=== PATIENT | male | born 2000 | race Caucasian/White ===

== ENCOUNTER 2021-03-23 16:07 | Emergency (ER) | payer OTHER ==
[~2021-03-23] VITALS: Ht 180.3 cm; Wt 89.2 kg
[2021-03-23 18:25] LABS: GC DNA AMPLIFICATION NEGATIVE (NEGATIVE)
[2021-03-23] MEDS ORDERED: DOXY1CAP62 PO (20:10)
[2021-03-23] MEDS ORDERED: cefTRIAXone SOD 1GM VIAL (J0696 PER 250MG) IM ONE (20:10)
[2021-03-23] MEDS ORDERED: LIDOCAINE 1% SDV 5ML VIAL DILUENT ONE (20:10)
[2021-03-23 20:42] VITALS: BP 128/69
[2021-03-23 21:23] LABS: HIV 1&2 SCREEN CENTAUR NEGATIVE (NEGATIVE)
[2021-03-28 23:06] LABS: HSV-1 DNA Negative (Negative); HSV-2 DNA Negative (Negative)
== END 2021-03-23 20:43 | disposition home or self-care (01) ==
LOC: M ED 16:07
DX: Z20.2 Contact with and (suspected) exposure to infections with a predominantly sexual mode of transmission (principal); A54.9 Gonococcal infection, unspecified; A74.9 Chlamydial infection, unspecified
CPT/HCPCS: 81001; 86780; 87389; 87529; 87661; 96372; 99283; J0696